=== PATIENT | male | born 1995 | race Caucasian/White ===

== ENCOUNTER 2025-02-27 14:41 | Outpatient (REF) | payer OTHER, SELFPAY ==
--- NOTE | ~2025-02-27 | XR_ITS ---
EXAMINATION: XR KNEE 4 OR MORE VIEWS LEFT HISTORY: PAIN COMPARISON: There are no prior studies available for comparison. FINDINGS: Four views of the left knee are submitted. Osseous mineralization is normal. There is no fracture or dislocation. The joint spaces are preserved. The soft tissues are unremarkable. There is no joint effusion. XR/XR knee LT 4V IMPRESSION: Unremarkable examination of the left knee. Electronically signed by: Roegr Harvey MD 02/27/2025 03:12 PM [facility]ANA
--- OUTSIDE RECORDS SUMMARY | 2025-02-27 14:15 | XMS_ITS | Encounter Summary ---
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 Role Phone Unavailable Primary Care Provider Unavailabl e Reason for Referral * Consultation (Routine) - Authorized Specialty Diagnoses / Procedures Referred By Kapil mata Referred To Contact Orthopaedic Surgery Diagnoses Chronic pain of left knee Leonidas Doran MD [address] [place] [id number] Phone: tel: fax: [facility] [address] [place] [address] Phone: tel: Referral ID Status Reason Start Date Expiration Date Visits Requested Visits Authorized [id number] Authorized Specialty Services Required 02/27/2025 02/27/2026 1 1 Encounter Details Date Type Department Care Team (Late st Contact Info) Description 02/27/2025 2:15 PM EST Office Visit [facility] MED[facility]INE [address] [place] [phone] Leonidas Doran MD [address] [place] [phone] Routine general medical examination at a health care facility (Primary Dx); Chronic pain of left knee; Dietary counseling; Exercise counseling; Overweight Social History Tobacco Use Types Packs/Day Years Used Date Smoking Tobacco: Never Tobacco Cessation:Counseling Given: Not Answered Depression Answer Date Recorded Patient Health Questionnaire-9 Score 0 02/27/2025 Patient Health Questionnaire-9 Score 0 02/27/2025 Last PHQ-9: Questionnaire Data Not on file 1 04/29/2024 Housing Stability Answer Date Recorded What is your housing situation today? I have candelaria anand 02/27/[address] you li ve. Do you have problems with any of the following? None of the above 02/27/2025 Food Insecurity Answer Date Recorded Within the past 12 months, y ou worried that your food would run out before you got money to buy more: Never True 02/27/2025 Within the past 12 months,th e food you bought just didn't last and you didn't have enough money to get more: Never True 10/2024 Transportation Answer Date Recorded In the past 12 months, has l ack of transportation kept you from medical appts, meetings, work or from getting things needed for daily living? No 02/27/2025 Utilities Answer Date Recorded In the past 12 months, has t he electric, gas, oil or water company threatened to shut off services in your home? No 02/27/2025 Depression Answer Date Recorded Patient Health Questionnaire-2 Score 0 02/27/2025 Internet Access Answer Date Recorded Internet Access Q1 Yes 02/27/2025 Internet Access Q2 Not on file 02/27/2025 Sex and Gender Information Value Date Recorded Sex Assigned at Male 01/27/2025 10:41 AM EDT Legal Sex Male 10:40 AM EDT Gender Identity Male 01/27/2025 10:41 AM EDT Sexual Orientation Straight 02/26/2025 10 :14 AM EST documented as of this encounter Last Filed Vital Signs Vital Sign Reading Time Taken Comments Blood Pressure 130/80 02/27/2025 2:10 PM EST Pulse 60 02/27/2025 2:10 PM EST Temperature 36 C (96.8 F) 02/27/2025 2:10 PM EST Respiratory Rate 17 02/27/2025 2:10 PM EST Oxygen Saturation 98% 02/27/2025 2:10 PM EST Inhaled Oxygen Concentration - - Weight 79.1 kg (174 lb 6.4 oz) 02/27/2025 2:10 P M EST Height 175.3 cm (5' 9 ) 02/27/2025 2:10 PM EST Body Mass Index 25.75 02/27/2025 2:10 PM EST documented in this encounter Functional Status * Over the past 2 weeks, how often have you been bothered by any of the following problems? Question Answer Date of Assessment Author Patient Health Questionnaire -2 Score 0 02/27/2025 3:48 PM Kiah Arriaga MA * Little interest or pleasure in doing things Answer Date of Assessment Author Not at all 02/27/2025 3:48 PM Georgie Arriaga MA * Feeling down, depressed, or hopeless Answer Date of Assessment Author Not at all 02/27/2025 3:48 PM Georgie Arriaga MA * Trouble falling or staying asleep, or sleeping too much Answer Date of Assessment Author Not at all 02/27/2025 3:48 PM Georgie Arriaga MA * Feeling tired or having little energy Answer Date of Assessment Author Not at all 02/27/2025 3:48 PM Georgie Arriaga MA * Poor appetite or overeating Answer Date of Assessment Author Not at all 02/27/2025 3:48 PM Georgie Arriaga MA * Feeling bad about yourself - or that you are a failure or have let yourself or your family down Answer Date of Assessment Author Not at all 02/27/2025 3:48 PM Georgie Arriaga MA * Trouble concentrating on things, such as reading the newspaper or watching television Answer Date of Assessment Author Not at all 02/27/2025 3:48 PM Georgie Arriaga MA * Moving or speaking so slowly that other people could have noticed? Or the opposite - being so fidgety or restless that you have been moving around a lot more than usual. Answer Date of Assessment Author Not at all 02/27/2025 3:48 PM Georgie Arriaga MA * Thoughts that you would be better off or hurting yourself in some way Answer Date of Assessment Author Not at all 02/27/2025 3:48 PM Georgie Arriaga MA * Patient Health Questionnaire-9 Score Answer Date of Assessment Author 0 02/27/2025 3:48 PM Georgie Arriaga MA * Over the last 2 weeks, how often have you been bothered by any of the following problems? Question Answer Date of Assessment Author Feeling nervous, anxious, or on edge 0 02/27/2025 3:48 PM Kiah Arriaga MA Not being able to stop or control worrying 0 02/27/2025 3:48 PM Kiah Arriaga MA Worrying too much about different things 0 02/27/2025 3:48 PM Kiah Arriaga MA Trouble relaxing 0 02/27/2025 3:48 PM Georgie Smith MA Being so restless that it is hard to sit still 0 02/27/2025 3:48 PM Kiah Arriaga MA Becoming easily annoyed or irritable 0 02/27/2025 3:48 PM Kiah Arriaga MA Feeling afraid as if somethi ng awful might happen 0 02/27/2025 3:48 PM Kiah Arriaga MA KARI-7 Total Score 0 02/27/2025 3:48 PM Georgie Arriaga MA documented as of this encounter Progress Notes * Dejuan Holbrook NP - 02/27/2025 2:15 PM EST Subjective: Nicolas Mckenzie is a 29 y.o. male who presents to the office for a new patient visit. Previous PCP [facility]- last evaluation 2018. Interim history: Allergic Asthma (Resolved) - History of pollen allergy-related asthma since age 1, primarily during allergy season - Asthma symptoms resolved with age; currently able to exercise without limitation - Used albuterol as a child Current concerns: Left Knee Pain - Intermittent dull ache in left knee, sometimes radiating to lower leg and anterior aspect of the foot, present intermittently for approximately 7 years - Pain aggravated by bending and running, with occasional shooting pain if bending too far or too quickly - Most recent episode involved waking up with pain and limping for about a week, then resolved - No history of injury to the knee - Wrestled in high school, no knee injuries reported - No redness, warmth, swelling, locking of knee, fever, loss of sensation, numbness, or tingling - Pain sometimes felt on sides of knee to touch when symptomatic - Running on treadmill previously aggravated pain; switched to elliptical with improvement - Occasionally takes ibuprofen for pain - Started glucosamine supplement for knee, taken for several years Problem List[1] Environmental allergies Asthma as a pediatric Surgical History[2] Surgical history- appendectomy 08/2004 Vasectomy- 08/2024 Family History[3] Hypertension- none Diabetes-none Colon Cancer: dad, diagnoses- 57, living Prostate cancer- none Social History Living situation: spouse and kids 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 Negative for activity change, chills, fatigue and fever. HENT: Negative. Negative for congestion, ear discharge, ear pain, rhinorrhea, sinus pain, sneezing,sore throat and tinnitus. Eyes: Negative. Negative for pain, discharge and itching. Respiratory: Negative. Negative for cough, chest tightness, shortness of breath and wheezing. Cardiovascular: Negative for chest pain, palpitations and leg swelling. Gastrointestinal: Negative. Negative for abdominal pain, constipation, diarrhea, nausea and vomiting. Endocrine: Negative. Negative for polydipsia, polyphagia and polyuria. Genitourinary: Negative for decreased urine volume, difficulty urinating, dysuria, hematuria and urgency. Musculoskeletal: Negative for back pain, gait problem and joint swelling. Left knee pain Skin: Negative for color change, pallor and rash. Allergic/Immunologic: Positive for environmental allergies. Negative for food allergies. Neurological: Negative. Negative for dizziness, seizures, weakness and headaches. Psychiatric/Behavioral: Negative. Negative for agitation, confusion, decreased concentration, sleepdisturbance and suicidal ideas. The patient is not nervous/anxious. Vitals: 02/27/25 1410 BP: 130/80 Pulse: 60 Resp: 17 Temp: 96.8 ??F (36 ??C) TempSrc: Temporal SpO2: 98% Weight: 174 lb 6.4 oz (79.1 kg) Height: 5' 9 (1.753 m) Physical Exam Constitutional: General: He is awake. Appearance: Normal appearance. He is not ill-appearing, toxic-appearing or diaphoretic. HENT: Head: Normocephalic and atraumatic. Right Ear: Hearing, tympanic membrane, ear canal and external ear normal. No swelling or tenderness. There is no impacted cerumen. Tympanic membrane is not erythematous, retracted or bulging. Left Ear: Hearing, tympanic membrane, ear canal and external ear normal. No swelling or tenderness.There is no impacted cerumen. Tympanic membrane is not erythematous, retracted or bulging. Nose: Nose normal. No septal deviation or nasal tenderness. Right Sinus: No maxillary sinus tenderness or frontal sinus tenderness. Left Sinus: No maxillary sinus tenderness. Mouth/Throat: Lips: [place]. Mouth: Mucous membranes are moist. Pharynx: No pharyngeal swelling or posterior oropharyngeal erythema. Tonsils: No tonsillar exudate. Eyes: General: Lids are normal. Lids are everted, no foreign bodies appreciated. Extraocular Movements: Extraocular movements intact. Right eye: Normal extraocular motion and no nystagmus. Left eye: Normal extraocular motion and no nystagmus. Conjunctiva/sclera: Conjunctivae normal. Pupils: Pupils are equal, round, and reactive to light. Right eye: Pupil is not sluggish. Left eye: Pupil is not sluggish. Funduscopic exam: Right eye: Red reflex present. Left eye: Red reflex present. Neck: Thyroid: No thyroid mass, thyromegaly or thyroid tenderness. Cardiovascular: Rate and Rhythm: Normal rate and regular rhythm. Heart sounds: Normal heart sounds, S1 normal and S2 normal. Pulmonary: Effort: Pulmonary effort is normal. No respiratory distress. Breath sounds: Normal breath sounds and air entry. No decreased air movement. No decreased breath sounds, wheezing or rhonchi. Abdominal: General: Abdomen is flat. Bowel sounds are normal. Palpations: Abdomen is soft. Tenderness: There is no abdominal tenderness. Hernia: No hernia is present. Musculoskeletal: Cervical back: Full passive range of motion without pain. Right lower leg: No edema. Left lower leg: No edema. Comments: Lateral aspect of the knee- pain to the lateral aspects of the knee ROM present with no discomfort with extension, flexion, or internal and external rotations Lymphadenopathy: Head: Right side of head: No submandibular, preauricular, posterior auricular or occipital adenopathy. Left side of head: No submandibular, preauricular, posterior auricular or occipital adenopathy. Cervical: No cervical adenopathy. Right cervical: No superficial, deep or posterior cervical adenopathy. Left cervical: No superficial, deep or posterior cervical adenopathy. Skin: General: Skin is warm. Coloration: Skin is not pale. Findings: No acne, bruising, ecchymosis, erythema or signs of injury. Neurological: Mental Status: He is alert and oriented to person, place, and time. Gait: Gait is intact. Psychiatric: Behavior: Behavior is cooperative. Assessment & Plan Routine general medical examination at a health care facility Orders: CBC auto differential; Future Comprehensive Metabolic Panel; Future Lipid Panel, Standard; Future Hemoglobin A1c; Future TSH W/Reflex to FT4; Future Hepatitis C Antibody with Reflex to HCV, RNA, Quantitative, Real-Time PCR; Future Chronic pain of left knee Intermittent left knee pain, etiology undetermined. Ordered x-ray Can use Ibuprofen for pain Active rest, use of cold/ warm therapy Report new trauma, inability to bear weight to the extremity, unrelenting pain, erythema, fever, swelling, locking, etc. Orthopedic referral sent given the length of the pain Orders: XR Knee 4+ Views Left; Future Referral to Orthopaedic Surgery; Future Dietary counseling Exercise counseling [employer] 150 minutes of exercise per week, as tolerated. Decrease intake of saturated fats and increase the intake of complex carbohydrates, lean protein, complex fiber, and low glycemic fruits. Overweight Routine Screening and Health Maintenance Optometry: Yes [facility]: Yes- [facility] ASCVD risk: 29 y.o. male low Lab Review: orders written for new lab studies as appropriate; see orders Routine Cancer Screening Colon CA: N/A Lung CA: N/A PSA: N/A Current Medications[5] Immunization History Administered Date(s) Administered DTP 1993, 02/10/1994, 04/25/1994, 04/13/1995 DTaP, Unspecified 10/11/1998 HPV, Quadrivalent 12/14/2011, 03/01/2012, 07/12/2012 Hep B, Unspecified 1993, 1993, 07/24/1994 HiB, unspecified 1993, 02/10/1994, 04/25/1994, 01/08/1995 Influenza Injectable Quadrivalant Preservative Free IIV4 MDCK 01/23/2022 Influenza injectable quadrivalent preservative free 01/30/2013, 02/28/2015, 02/20/2020, 03/04/2021,01/23/2023 Influenza, IIV3, injectable 02/07/2010, 03/09/2011 Influenza, Recombinant, injectable, preservative free 01/16/2025 Influenza, seasonal, injectable, preservative free 01/18/2024 MMR 01/08/1995, 10/06/1997 Meningococcal ACWY, unspecified 02/14/2008 Meningococcal MCV4P ACYW-135 03/09/2011 Moderna Covid-19 Vaccine 12+ 08/12/2020, 09/10/2020, 03/25/2021, 01/23/2023 Moderna Covid-19 Vaccine 6+ Bivalent 01/23/2022 OPV, Trivalent 1993, 02/10/1994, 04/13/1995, 10/11/1998 Td (adult), unspecified 10/21/2004 Tdap 02/07/2010, 03/04/2021 Varicella 10/20/1994, 02/14/2008 Follow up in about 1 year (around 02/27/2026), or if symptoms worsen or fail to improve. [facility] BOARD CERTIFIED FAMILY PHYSICIAN Attestation BOARD CERTIFIED FAMILY PHYSICIAN Resident Attestation: Patient was seen and evaluated by Dejuan MANCERA, in collaboration with Leonidas Doran MD who has reviewed my assessment and plan. I, Leonidas Doran MD , have reviewed the resident's note and agree with the assessment & plan of care as documented above. This note was drafted using Ambient (AI) technology. The patient/patient's guardian has been informed and has consented to the use of this technology: Yes [1] Patient Active Problem List Diagnosis Chronic pain of left knee [2] No past surgical history on file. [3] No family history on file. [4] No Known Allergies [5] No current outpatient medications on file. No current facility-administered medications for this visit. documented in this encounter Miscellaneous Notes * Assessment & Plan Note - Dejuan Holbrook NP - 02/27/2025 2:15 PM EST Associated Problem(s): Chronic pain of left knee Intermittent left knee pain, etiology undetermined. Ordered x-ray Can use Ibuprofen for pain Active rest, use of cold/ warm therapy Report new trauma, inability to bear weight to the extremity, unrelenting pain, erythema, fever, swelling, locking, etc. Orthopedic referral sent given the length of the pain Orders: XR Knee 4+ Views Left; Future Referral to Orthopaedic Surgery; Future documented in this encounter Plan of Treatment Scheduled Orders Name Type Priority Associated Diagnoses Orde r Schedule CBC auto differential Lab Routine Routine general medical examination at a [facility] care facility Expected: 02/27/2025 (Approximate), Expires: 02/27/2026 Comprehensive Metabolic Panel Lab Routine Routine general medical examination at a [facility] care facility Expected: 02/27/2025 (Approximate), Expires: 02/27/2026 Lipid Panel, Standard Lab Routine Routine general medical examination at a [facility] care facility Expected: 02/27/2025 (Approximate), Expires: 02/27/2026 Hemoglobin A1c Lab Routine Routine general medical examination at a [facility] care facility Expected: 02/27/2025 (Approximate), Expires: 02/27/2026 TSH W/Reflex to FT4 Lab Routine Routine general medical examination at a [facility] care facility Expected: 02/27/2025 (Approximate), Expires: 02/27/2026 Hepatitis C Antibody with Reflex to HCV, RNA, Quantitative, Real-Time PCR Lab Routine Routine general medical examination at a [facility] care facility Expected: 02/27/2025, Expires: 02/27/2026 Scheduled Referrals Name Type Priority Associated Diagnoses Order Schedule Referral to Orthopaedic Surgery Outpatient Referral Routine Chronic pain of left knee Expected: 02/27/2025 (Approximate), Expires: 02/27/2026 documented as of this encounter Procedures Procedure Name Priority Date/Time Associated Diagnosis Comments XR KNEE 4+ VIEWS LEFT Routine 02/27/2025 3:00 PM EST Chronic pain of left knee documented in this encounter Results * XR Knee 4+ Views Left (02/27/2025 3:00 PM EST) Anatomical Region Laterality Modality Lower Extremities, Knee Left Radiogra phic Imaging 02/27/2025 3:00 PM EST Narrative 02/27/2025 3:15 PM EST [address] [address] XRay Report Signed Patient: Nicolas Mckenzie MR#: [id number] 63 : 1995 Acct:[id number] Age/Sex: 29 / M ADM Date: 02/27/25 Loc: [facility] Attending Dr: Leonidas Doran MD Ordering Physician: Leonidas Doran MD Date of Service: 02/27/25 Procedure(s): XR knee LT 4V Accession Number(s): [id number] cc: Leonidas Doran MD Reason for Exam: PAIN EXAMINATION: XR KNEE 4 OR MORE VIEWS LEFT HISTORY: PAIN COMPARISON: There are no prior studies available for comparison. FINDINGS: Four views of the left knee are submitted. Osseous mineralization is normal. There is no fracture or dislocation. The joint spaces are preserved. The soft tissues are unremarkable. There is no joint effusion. XR/XR knee LT 4V IMPRESSION: Unremarkable examination of the left knee. Electronically signed by: Roger Harvey MD 02/27/2025 03:12 PM EST Dictated By: Roger Harvey MD Signed By: <Electronically signed by Roger Harvey MD in OV> 02/27/25 1512 DD/ 1500 TD/TT: 02/27/25 1509 Certified Anesthesiologist Assistant: Procedure Note [place], Image - 02/27/[address] [address] XRay Report Signed Patient: Nicolas MckenzieMR#: [id number] 63 : 1995Acct:[id number] Age/Sex: 29 / MADM Date: 02/27/25 Loc: [facility] Attending Dr: Leonidas Doran MD Ordering Physician: Leonidas Doran MD Date of Service: 02/27/25 Procedure(s): XR knee LT 4V Accession Number(s): [id number] cc: Leonidas Doran MD Reason for Exam: PAIN EXAMINATION: XR KNEE 4 OR MORE VIEWS LEFT HISTORY: PAIN COMPARISON: There are no prior studies available for comparison. FINDINGS: Four views of the left knee are submitted. Osseous mineralization is normal. There is no fracture or dislocation. The joint spaces are preserved. The soft tissues are unremarkable. There is no joint effusion. XR/XR knee LT 4V IMPRESSION: Unremarkable examination of the left knee. Electronically signed by: Roger Harvey MD 02/27/2025 03:12 PM EST RP Dictated By: Roger Harvey MD Signed By: <Electronically signed by Roger Harvey MD in OV> 02/27/25 1512 DD/ 1500 TD/TT: 02/27/25 1509 Certified Anesthesiologist Assistant: Leonidas Name IMG XR PROCEDURES Final Result documented in this encounter Visit Diagnoses Diagnosis Routine general medical examination at a health care facility- Primary Chronic pain of left knee Dietary counseling Dietary surveillance and counseling Exercise counseling Overweight documented in this encounter Additional Health Concerns Assessment Noted Time PHQ-9 Depression Total Score: 0 02/28/20 3:48 PM EST documented as of this encounter
--- OUTSIDE RECORDS SUMMARY | 2025-02-27 16:12 | XMS_ITS | Encounter Summary ---
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 Role Phone Unavailable Primary Care Provider Unavailabl e Encounter Details Date Type Department Care Team (Latest Contact Info) Description 02/27/2025 Travel Social History Tobacco Use Types Packs/Day Years Used Date Smoking Tobacco: Never Depression Answer Date Recorded Patient Health Questionnaire-9 [...] AM EST documented as of this encounter Functional Status * Over the [...] Arriaga MA documented as of this encounter Plan of Treatment Not on file documented as of this encounter Visit Diagnoses Not on filedocumented in this encounter Additional Health Concerns Assessment Noted Time PHQ-9 Depression Total Score: 0 02/28/20 25 3:48 PM EST documented as of this encounter
--- OUTSIDE RECORDS SUMMARY | 2025-02-27 16:12 | XMS_ITS | Clinical Summary ---
Author Organization [facility] Address [address] [place] [address] 7 [place] [address] Care Team Providers Care Associate Professor Of Theatre Name Role Phone Unavailable Primary Care Provider Unavailabl e Allergies No known active allergies Active Problems Problem Noted Date Diagnosed Date Chronic pain of left knee 02/27/2025 Assessment & Plan (02/27/2025 2:58 PM EST): Intermittent left knee pain, etiology undetermined. Ordered x-ray Can use Ibuprofen for pain Active rest, use of cold/ warm therapy Report new trauma, inability to bear weight to the extremity, unrelenting pain, erythema, fever, swelling, locking, etc. Orthopedic referral sent given the length of the pain Orders: XR Knee 4+ Views Left; Future Referral to Orthopaedic Surgery; Future Encounters Date Type Department Care Team Description 02/27/2025 2:15 PM EST Office Visit [facility] [address] [place] [phone] Leonidas Doran MD Routine general medical examination at a health care facility (Primary Dx); Chronic pain of left knee; Dietary counseling; Exercise counseling; Overweight 02/27/2025 Travel 02/26/2025 Telephone [facility] [address] [place] [address] Fay Jauregui MA chart prep 02/20/2025 Travel 02/10/2025 Telephone [facility] [address] [place] [phone] Michael Toussaint MD 01/27/[address] [address] Michael Toussaint MD telephone call from Last 3 Months Immunizations Immunization Administration Dates Next Due DTP 04/13/1995, 5,02/10/1994,12/14 DTaP, Unspecified 10/11/1998 HPV, Quadrivalent 07/12/2012,03/01/2012,12/14/19 12 Hep B, Unspecified 07/24/1994,1993, 994 HiB, unspecified 01/08/1995, 5,02/10/1994,12/14 Influenza Injectable Quadriv alant Preservative Free IIV4 MDCK 01/23/2022 Influenza injectable quadriv alent preservative free 01/23/2023,03/04/2021,02/20/2020,02/28,01/30/2013 Influenza, IIV3, injectable 03/09/2011, 0 Influenza, Recombinant, inje ctable, preservative free 01/16/2025 Influenza, seasonal, injecta ble, preservative free 01/18/2024 MMR 10/06/1997,01/08/1995 Meningococcal ACWY, unspecified 02/14/2008 Meningococcal MCV4P ACYW-135 03/09/2011 OPV, Trivalent 10/11/1998, 5,02/10/1994,12/14 Td (adult), unspecified 10/21/2004 Tdap 03/04/2021,02/07/2010 Varicella 02/14/2008,10/20/1994 Social History Tobacco Use Types Packs/Day Years [...] Orientation Straight 02/26/2025 10 :14 AM EST Last Filed Vital Signs Vital Sign Reading [...] Mass Index 25.75 02/27/2025 2:10 PM EST Plan of Treatment Health Maintenance Due Date Last Done Comments HIV Screening 1993 Alcohol/Substance Use Screening 2005 Family Planning (PISQ) 2008 Hepatitis C Screening 10/09/2011 COVID-19 Vaccine ( season) 2024 01/23/2023, 01/23/2022, 03/25/2021, Additional history exists Disability Screening 02/20/2026 02/20/2025 Depression Screening 02/27/2026 02/27/2025, 02/28/20 25 SDOH Screening 02/27/2026 02/27/2025 Tobacco Screening 02/27/2026 02/27/2025 DTaP/Tdap/Td Vaccines (8 - Td or Tdap) 03/04/2031 03/04/2021, 02/07/2010, 10/21/2004, Additional history exists Zoster Vaccines (1 of 2) 10/09/2043 RSV Patients and Patients Aged 60 years or older (1 - 1-dose 75+ series) 2068 Hepatitis B Vaccines Completed 07/24/1994, 1993, 1993 HIB Vaccines Completed 01/08/1995, 06/1994, 02/10/1994, Additional history exists IPV Vaccines Completed 10/11/1998, 03/24, 02/10/1994, Additional history exists Meningococcal Vaccine Completed 03/09/2011, 008 HPV Vaccines Completed 07/12/2012, 12/2011, 12/14/2011 Influenza Vaccine Completed 01/16/2025, , 01/23/2023, Additional history exists Hepatitis A Vaccines Aged Out No long er eligible based on patient's age to complete this topic Meningococcal B Vaccine Aged Out No l onger eligible based on patient's age to complete this topic Pneumococcal Vaccine: Pediatrics (0 to 5 Years) and At-Risk Patients (6 to 49) Years Aged Out No longer eligible based on patient's age to complete this topic RSV under 20 months Aged Out No longe r eligible based on patient's age to complete this topic Rotavirus Vaccines Aged Out No longer eligible based on patient's age to complete this topic Procedures Procedure Name Priority Date/Time Associated Diagnosis Comments XR KNEE 4+ VIEWS LEFT Routine 02/27/2025 3:00 PM EST Chronic pain of left knee from Last 3 Months Results * XR Knee 4+ Views Left (02/27/2025 3:00 PM EST) Anatomical Region Laterality Modality Lower Extremities, Knee Left [facility] 02/27/2025 3:00 PM EST Narrative 02/27/2025 3:15 PM EST [address] [address] XRay Report Signed Patient: Nicolas Mckenzie MR#: [id number] 63 : 1995 Acct:[id number] Age/Sex: 29 / M ADM Date: 02/27/25 Loc: ABBYCX Attending Dr: Leonidas Doran MD Ordering Physician: Leonidas Doran MD Date of Service: 02/27/25 Procedure(s): XR knee LT 4V Accession Number(s): [id number] cc: Leonidas Doran MD Reason for Exam: [...] by: Roger Harvey MD 02/27/2025 03:12 PM [facility] Dictated By: Roger Harvey MD Signed By: <Electronically signed by Roger Harvey MD in OV> 02/27/25 1512 DD/ 1500 TD/TT: 02/27/25 1509 Fuel Truck Driver: Procedure Note Donrachealter, Image - 02/27/[address] [address] XRay Report Signed Patient: Nicolas MckenzieMR#: [id number] 63 : 1995Acct:[id number] Age/Sex: 29 / MADM Date: 02/27/25 Loc: ABBYCX Attending Dr: Leonidas Doran MD Ordering Physician: Leonidas Doran MD Date of Service: 02/27/25 Procedure(s): XR knee LT 4V Accession Number(s): [id number] cc: Leonidas Doran MD Reason for Exam: [...] 02/27/25 1512 DD/ 1500 TD/TT: 02/27/25 1509 Fuel Truck Driver: Leonidas Name IMG XR PROCEDURES Final Result from Last 3 Months Insurance [facility] [place] [place] [address]
--- OUTSIDE RECORDS SUMMARY | 2025-02-27 16:12 | XMS_ITS | Encounter Summary ---
Author Organization [facility] Address [address] [place] [address] 7 [place] [address] Care Team Providers Care Teletray Operator Name Role Phone Unavailable Primary Care Provider Unavailabl e Reason for Visit * Reason Onset Date Comments chart prep 02/26/2025 Encounter Details Date Type Department Care Team (Late st Contact Info) Description 02/26/2025 Telephone [facility] [address] [place] [address] Fay Jauregui MA chart prep Social History Tobacco Use Types Packs/Day Years Used Date Smoking Tobacco: Never Assessed Depression Answer Date Recorded Patient Health Questionnaire-9 Score 0 02/27/2025 Patient Health Questionnaire-9 Score 0 02/27/2025 Last PHQ-9: Questionnaire Data Not on file 1 04/29/2024 Housing Stability Answer Date Recorded What is your housing situation today? I have candelariamio anand 02/27/[address] you [...] AM EST documented as of this encounter Miscellaneous Notes * Telephone Encounter - Fay Jauregui MA - 02/26/2025 3:01 PM EST Chart Prep Labs: done Images: not applicable Referrals: not applicable Vaccines due: Covid Screenings: not applicable Overdue care gaps: SBIRT, SDOH, PHQ-9, KARI-7, and Oral health screening documented in this encounter Plan of Treatment Not on file documented as of this encounter Visit Diagnoses Not on filedocumented in this encounter
--- OUTSIDE RECORDS SUMMARY | 2025-02-27 16:12 | XMS_ITS | Clinical Summary ---
Author Organization [facility] Address [address] [place] [phone] Phone Care Team Providers Care Supply Chain Engineer Name Role Phone Pcp, Unknown Primary Care Provider Unavailabl e Allergies No known active allergies Medications montelukast (SINGULAIR) 10 mg tablet Take 10 mg by mouth nightly at bedtime. Active Active Problems No known active problems Encounters Date Type Department Care Team Description 12/26/2024 5:20 PM EDT Office Visit [facility] at [address] [address] Marta Song PA-C Gould, Olya Crum, MATHEMATICS FACULTY MEMBER Acute bacterial rhinosinusitis (Primary Dx) from Last 3 Months Social History Tobacco Use Types Packs/Day Years Used Date Smoking Tobacco: Never Assessed Education Answer Date Recorded Are you interested in more education? Not on sam e 09/30/2022 Are you concerned about learning? Not on file 09/30/2022 No 09/30/2022 No 09/30/2022 Digital Access Answer Date Recorded No 09/30/2022 No 09/30/2022 Reliable internet access at home? Not on file 09/30/2022 Device with a working camera? Not on file Sex and Gender Information Value Date Recorded Sex Assigned at Not on file Legal Sex Male 10:41 AM EDT Gender Identity Not on file Sexual Orientation Not on file Last Filed Vital Signs Vital Sign Reading Time Taken Comments Blood Pressure 116/63 12/26/2024 6:18 PM EDT Pulse 85 12/26/2024 6:18 PM EDT Temperature 37.2 C (98.9 F) 12/26/2024 6:18 PM EDT Respiratory Rate 18 12/26/2024 6:18 PM EDT Oxygen Saturation 98% 12/26/2024 6:18 PM EDT Inhaled Oxygen Concentration - - Weight 79.4 kg (175 lb) 12/26/2024 6:18 PM EDT Height 175.3 cm (5' 9 ) 12/26/2024 6:18 PM EDT Body Mass Index 25.84 12/26/2024 6:18 PM EDT Plan of Treatment Health Maintenance Due Date Last Done Comments DEPRESSION SCREENING 2005 SMOKING Hx and SMOKELESS TOBACCO SCREENING 2006 HEPATITIS C SCREENING 10/09/2011 HIV ONE-TIME SCREENING (18-65 YEARS) 10/09/2011 INFLUENZA VACCINE (#1) 2024 , 01/23/2023, 01/23/2022, Additional history exists COVID-19 VACCINE ( season) 2024 01/23/2023, 01/23/2022, 03/25/2021, Additional history exists Adult Td,Tdap Booster 03/04/2031 03/04/2021 , 02/07/2010, 10/21/2004 HIB VACCINES Completed 01/08/1995, 06/1994, 02/10/1994, Additional history exists IPV VACCINES Completed 10/11/1998, 03/24, 02/10/1994, Additional history exists MENINGOCOCCAL VACCINES (ACWY) Completed 03/09/2011, 02/14/2008 HEPATITIS A VACCINES Aged Out No long er eligible based on patient's age to complete this topic MENINGOCOCCAL VACCINES (B) Aged Out N o longer eligible based on patient's age to complete this topic PNEUMOCOCCAL VACCINES (0-49 years) Aged Out No longer eligible based on patient's age to complete this topic Medical Devices Not on file Procedures Procedure Name Priority Date/Time Associated Diagnosis Comments POCT COVID-19 RT-PCR/INFLUENZA A & B/RSV CEPHEID Routine 12/26/2024 6:15 PM EDT from Last 3 Months Results * POCT COVID-19 RT-PCR/Influenza A & B/RSV (Cepheid) (12/26/2024 6:15 PM EDT) [facility] RSV PCR Negative Negative [facility] SARS-CoV-2 (COVID-19) Negative Negative [facility] POC Influenza A PCR Negative Negative [facility] Influenza B PCR Negative Negative [facility] 12/26/2024 6:15 PM EDT 12/26/2024 6:59 PM EDT us Marta Song PA-C LAB POCT ENTER/EDIT ORDERAB LES Final Result [facility] [address] [address], [facility] [phone] from Last 3 Months Insurance [facility] PPO [facility] PPO CIGNA PPO CIGNA PPO CIGNA PPO CIGNA PPO Care Teams Supply Chain Engineer Relationship Specialty Start Date End Date Pcp, Unknown PCP - General 09/30/22 Additional Source Comments The information contained in this document represents components of the legal health record. It is not the complete legal health record.[facility]
== END 2025-02-27 14:42 | disposition home or self-care (01) ==
LOC: HO.HHCX 14:41
PROVIDERS: PCP Internal Medicine Geriatric Medicine; Visit Provider Internal Medicine Geriatric Medicine
DX: M25.562 Pain in left knee (principal); G89.29 Other chronic pain
CPT/HCPCS: 73564

== ENCOUNTER → 2025-02-27 14:52 | Outpatient (BNV) | payer OTHER, SELFPAY | PROVIDERS: PCP Internal Medicine Geriatric Medicine; Visit Provider Radiology Diagnostic Radiology | DX: M25.562 Pain in left knee (principal) | CPT/HCPCS: 73564 ==

== ENCOUNTER 2025-03-06 10:04 | Outpatient (REF) | payer OTHER, SELFPAY ==
--- OUTSIDE RECORDS SUMMARY | 2025-03-06 12:01 | XMS_ITS | Encounter Summary ---
Author Organization [facility] Address [address] [place] [address] Care Team Providers Care Dielectric Testing Machine Operator Name Role Phone Physician, No Pcp Primary Care Provider Unavaila ble Encounter Details Date Type Department Care Team (Latest Contact Info) Description 09/09/2024 Lab Requisition [facility] - Main Lab [address] [place] [address] Yung Dailey MD [address] [facility] [address] [place] [phone] Encounter for sterilization Social History Tobacco Use Types Packs/Day Years Used Date Smoking Tobacco: Never Assessed Sex and Gender Information Value Date Recorded Sex Assigned at Not on file Legal Sex Male 3:57 PM EDT Gender Identity Not on file Sexual Orientation Not on file documented as of this encounter Plan of Treatment Not on file documented as of this encounter Procedures Procedure Name Priority Date/Time Associated Diagnosis Comments AP OUTSIDE CONSULT Routine 09/08/2024 Encounter for sterilization documented in this encounter Results * Anatomic pathology outside consult (09/08/2024) Final Diagnosis Vas Deferens, Right, vasectomy: -SEGMENT OF NORMAL VAS DEFERENS WITH EPITHELIUM/ LUMEN IDENTIFIED. Vas Deferens, Left, vasectomy: -SEGMENT OF NORMAL VAS DEFERENS WITH EPITHELIUM/ LUMEN IDENTIFIED. 09/11/2024 1:09 PM EDT [facility] Clinical Information Z30.2 - Encounter for sterilization [id number] 09/11/2024 1:09 PM EDT [facility] Gross Description A. Vas Deferens, Right, : Labeled right vas deferens . Received in formalin is a 0.2 x 0.3 cm rubbery, orr, tubular portion of tissue, with a central pinpoint lumen, which is submitted in toto in one cassette, between sponges, one piece, embed on end. (The luminal aspect is inked red to assist with embedding orientation.) B. Vas Deferens, Left, : Labeled left vas deferens . Received in formalin is a 0.2 x 0.3 cm rubbery, orr, tubular portion of tissue, with a central pinpoint lumen, which is submitted in toto in one cassette, between sponges, one piece, embed on end. (The luminal aspect is inked red to assist with embedding orientation.) /al 09/11/2024 1:09 PM EDT [facility] Disclaimer Unless otherwise specified, all tissue is 10% NB formalin fixed and paraffin embedded. Technical pathology services provided by [facility] at [address] [place] [address] [address], [place] [address] (CLIA #[id number]/Kylah Everett MD, Clip Coater) 09/11/2024 1:09 PM EDT [facility] Tissue Structure of left vas deferens / Unknown 09/08/2024 09/09/2024 4:14 PM EDT Tissue specimen (specimen) Structure of left vas deferens / Unknown 09/08/2024 09/09/2024 4:14 PM EDT us Yung Dailey MD LAB PATHOLOGY ORDERABLES Fin al Result [facility] [address] [place] [address], documented in this encounter Visit Diagnoses Diagnosis Encounter for sterilization Sterilization documented in this encounter Care Teams Dielectric Testing Machine Operator Relationship Specialty Start Date End Date Physician, No Pcp PCP - General 09/09/24 documented as of this encounter
--- OUTSIDE RECORDS SUMMARY | 2025-03-06 12:01 | XMS_ITS | Clinical Summary ---
Author Organization [facility] Address [address] [place] [address] [address] [place] [address] Care Team Providers Care Medical Insurance Collector Name Role Phone Unavailable Primary Care Provider [...] Description 02/27/2025 2:15 PM EST Office Visit [facility] [address] [place] [address] Leonidas Doran MD Routine general medical examination at a health care facility (Primary Dx); Chronic pain of left knee; Dietary counseling; Exercise counseling; Overweight 02/27/2025 Travel 02/26/2025 Telephone [facility] [address] [place] [address] Fay Jauregui MA chart prep 02/20/2025 Travel 02/10/2025 Telephone [facility] [address] [place] [address] Michael Toussaint MD 01/27/[address] [address] Michael Toussaint MD telephone call from Last [...] Laterality Modality Lower Extremities, Knee Left [facility] 02/27/2025 3:00 PM EST Narrative 02/27/2025 3:15 PM EST [address] [address] XRay Report Signed Patient: Nicolas Mckenzie MR#: [id number] 63 : 1995 Acct:[id number] Age/Sex: 29 / M ADM Date: 02/27/25 Loc: ABBYCX Attending Dr: Leonidas Doran MD Ordering Physician: Leonidas Doran MD Date of Service: 02/27/25 Procedure(s): XR knee LT 4V Accession Number(s): [id number] cc: Leonidas Doran MD Reason for Exam: [...] by: Roger Harvey MD 02/27/2025 03:12 PM [facility] Dictated By: Roger Harvey MD Signed By: <Electronically signed by Roger Harvey MD in OV> 02/27/25 1512 DD/ 1500 TD/TT: 02/27/25 1509 Pinsetter Mechanic Helper: Procedure Note Donrachealter, Image - 02/27/[address] [address] XRay Report Signed Patient: Nicolas MckenzieMR#: [id number] 63 : 1995Acct:[id number] Age/Sex: 29 / MADM Date: 02/27/25 Loc: ABBYCX Attending Dr: Leonidas Doran MD Ordering Physician: Leonidas Doran MD Date of Service: 02/27/25 Procedure(s): XR knee LT 4V Accession Number(s): [id number] cc: Leonidas Doran MD Reason for Exam: [...] 02/27/25 1512 DD/ 1500 TD/TT: 02/27/25 1509 Pinsetter Mechanic Helper: Leonidas Name IMG XR PROCEDURES Final Result from Last 3 Months Insurance [facility] [place] [address]
--- OUTSIDE RECORDS SUMMARY | 2025-03-06 12:01 | XMS_ITS | Clinical Summary ---
Author Organization [facility] Address [address] [place] [address] Phone Care Team Providers Care Sales Branch Manager Name Role Phone Physician, No Pcp Primary Care Provider Unavaila ble Social History Tobacco Use Types Packs/Day Years Used Date Smoking Tobacco: Never Assessed Sex and Gender Information Value Date Recorded Sex Assigned at Not on file Legal Sex Male 3:57 PM EDT Gender Identity Not on file Sexual Orientation Not on file Plan of Treatment Health Maintenance Due Date Last Done Comments DTaP,Tdap,and Td Vaccines (1 - Tdap) 2012 Hepatitis B Vaccines (1 of 3 - 19+ 3-dose series) 2012 HPV Vaccines (1 - 3-dose SCD M series) 2020 Depression Screening 04/23/2024 HIV Screening 09/10/2024 Hepatitis C Screening 09/10/2024 Social Influencers of Health Screening 09/10/2024 COVID-19 Vaccine (1 - 2024-2 6 season) 2024 Influenza Vaccine (#1) 2024 RSV Immunization Adult Patie nts (1 - 1-dose 75+ series) 2068 HIB Vaccines Aged Out No longer eligi ble based on patient's age to complete this topic Hepatitis A Vaccines Aged Out No long er eligible based on patient's age to complete this topic IPV Vaccines Aged Out No longer eligi ble based on patient's age to complete this topic MMR Vaccines Aged Out No longer eligi ble based on patient's age to complete this topic Meningococcal ACWY Vaccine Aged Out N o longer eligible based on patient's age to complete this topic Meningococcal B Vaccine Aged Out No l onger eligible based on patient's age to complete this topic Pneumococcal Vaccine: Pediat rics (0 to 5 Years) and At-Risk Patients (6 to 49 Years) Aged Out No longer eligible b ased on patient's age to complete this topic RSV Immunization Patients Un milton 20 months Aged Out No longer eligible b ased on patient's age to complete this topic Varicella Vaccines Aged Out No longer eligible based on patient's age to complete this topic Insurance [facility] Care Teams Sales Branch Manager Relationship Specialty Start Date End Date Physician, No Pcp PCP - General 09/09/24
--- OUTSIDE RECORDS SUMMARY | 2025-03-06 12:01 | XMS_ITS | Clinical Summary ---
Author Organization [facility] Address [address] [place] [phone] Phone Care Team Providers Care Film Projector Operator Name Role Phone Pcp, Unknown Primary Care Provider Unavailabl e Allergies No known active allergies Medications montelukast (SINGULAIR) 10 mg tablet Take 10 mg by mouth nightly at bedtime. Active Active Problems No known active problems Encounters Date Type Department Care Team Description 12/26/2024 5:20 PM EDT Office Visit [facility] [address] [address] Marta Song PA-C Gould, Olya Crum, EMPLOYMENT LAW SPECIALIST Acute bacterial rhinosinusitis (Primary Dx) from Last [...] & B/RSV (Cepheid) (12/26/2024 6:15 PM EDT) [facility] RSV PCR Negative Negative [facility] SARS-CoV-2 (COVID-19) Negative Negative [facility] POC Influenza A PCR Negative Negative [facility] Influenza B PCR Negative Negative [facility] 12/26/2024 6:15 PM EDT 12/26/2024 6:59 PM EDT us Marta Song PA-C LAB POCT ENTER/EDIT ORDERAB LES Final Result [facility] [address] [address], [facility] [phone] from Last 3 Months Insurance [facility] PPO [facility] PPO CIGNA PPO CIGNA PPO CIGNA PPO CIGNA PPO Care Teams Film Projector Operator Relationship Specialty Start Date End Date Pcp, Unknown PCP - General 09/30/22 Additional Source Comments The information contained in this document represents components of the legal health record. It is not the complete legal health record.[facility]
[2025-03-06 12:16] LABS: MANUAL DIFF FLAG NO
[2025-03-06 12:23] LABS: Hematocrit 45.8 % (42.0-52.0); Hemoglobin 15.5 g/dl (14.0-18.0); Imm Gran Abs Auto 0.02 X10*3/uL (0.00-0.03); Imm Gran Pct Auto 0.3 % (0.0-0.4); Lymphocytes Absolute Auto 3.2 X10*3/uL (1.2-4.9); Mean Corpuscular HGB Conc 33.8 g/dl (31.0-36.0); Mean Corpuscular Hemoglobin 28.2 pg (27.0-33.0); Mean Corpuscular Volume 83.3 fL (80.0-98.0); NRBC Abs Auto 0.000 X10*3/uL (0.0-0.012); NRBC Pct Auto 0.0 /100WBC (0.0-0.2); Platelet Count 163 X10*3/uL (160-400); Red Blood Count 5.50 X10*6/uL (4.60-5.80); White Blood Count 6.9 X10*3/uL (4.8-10.8)
[2025-03-06 12:33] LABS: Hemoglobin A1C 88.4661 umol/L
[2025-03-06 14:11] LABS: Alanine Aminotransferase 29 U/L (0-40); Albumin Level 4.7 g/dL (3.5-5.0); Alkaline Phosphatase 78 U/L (39-117); Anion Gap 10 (12-20); Aspartate Amino Transferase 34 U/L (5-37); Blood Urea Nitrogen 25 mg/dL (9-16); Calcium 9.4 mg/dL (8.4-10.2); Carbon Dioxide 25 mmol/L (22-29); Chloride 108 mmol/L (96-108); Cholesterol 153 mg/dL (<200); Estimated Glomerular Filt Rate > 60; HDL Cholesterol 47 mg/dL (>40); Potassium 4.3 mmol/L (3.3-5.1); Sodium 139 mmol/L (135-145); Total Protein 7.6 g/dL (6.5-8.0); Triglycerides 45 mg/dL (<150)
[2025-03-06 14:32] LABS: ~HepC Num1 0.16 S/CO (0.00-0.79); ~Hepatitis C Antibody Nonreactive (Nonreactive)
== END 2025-03-06 10:05 | disposition home or self-care (01) ==
LOC: HO.HHCL 10:04
PROVIDERS: PCP Internal Medicine Geriatric Medicine; Visit Provider Internal Medicine Geriatric Medicine
DX: Z00.00 Encounter for general adult medical examination without abnormal findings (principal); Z13.29 Encounter for screening for other suspected endocrine disorder; Z13.1 Encounter for screening for diabetes mellitus; Z13.6 Encounter for screening for cardiovascular disorders
CPT/HCPCS: 36415; 80053; 80061; 83036; 84443; 85025; 86803